=== PATIENT | male | born 1975 | race Caucasian/White ===

== ENCOUNTER 2022-06-06 21:12 | Emergency (ER) | payer BC, OTHER ==
[~2022-06-06] VITALS: Ht 175 cm; Wt 114.0 kg
[2022-06-06 21:26] VITALS: BP 148/107
--- NOTE | 2022-06-06 21:26 | ED Lower Extremity ---
General Stated Complaint: RIGHT LEG INJURY History of Present Illness Date Seen by Provider: Jun 06, 2022 Time Seen by Provider: 21:24 Initial Comments 46 yr M is here with c/o right knee pain after he rolled his opposite foot and his right knee was bent back all the way causing intensifying of pain which worsened. Pt has been having right knee pain for over a month after twisting his leg, and today it was exacerbated with the injury.Pt denies having an actual fall or blunt trauma to the knee. Pt took ibuprofen for the pain. Allergies and Home Medications Allergies Coded Allergies: No Known Drug Allergies (Unverified , 06/06/22) Patient Home Medication List Home Medication List Reviewed: Yes Review of Systems Constitutional: no symptoms reported EENTM: no symptoms reported Respiratory: no symptoms reported Cardiovascular: no symptoms reported Gastrointestinal: no symptoms reported Genitourinary: no symptoms reported Musculoskeletal: joint pain, joint swelling Skin: no symptoms reported Psychiatric/Neurological: No Symptoms Reported Physical Exam Vital Signs Vital Signs - First Documented 06/06/22 21:26 Temp 36.7 Pulse 76 Resp 16 B/P (MAP) 148/107 (121) Pulse Ox 97 O2 Delivery Room Air Capillary Refill : Height, Weight, BMI Height: '" Weight: lbs. oz. kg; BMI Method: General Appearance: WD/WN, no apparent distress HEENT: PERRL/EOMI Back: no vertebral tenderness Hips: right hip non-tender, right hip normal inspection, right hip normal range of motion, right hip no evidence of injury Legs: right leg non-tender, right leg normal inspection, right leg normal range of motion, right leg no evidence of injury Knees: right knee non-tender (Nontender To palpation), right knee normal range of motion, right knee swelling (Mild swelling to the knee, no crepitus, not warm to touch) Ankles: right ankle non-tender, right ankle normal inspection, right ankle normal range of motion, right ankle no evidence of injury Neurologic/Psychiatric: no motor/sensory deficits, alert, oriented x 3 Skin: normal color Progress/Results/Core Measures Results/Orders My Orders Orders - DASH PORRAS MD Knee 3 View Right (06/06/22 21:26) Tibia Fibula 2 View Right (06/06/22 21:30) Vital Signs/I&O 06/06/22 21:26 Temp 36.7 Pulse 76 Resp 16 B/P (MAP) 148/107 (121) Pulse Ox 97 O2 Delivery Room Air Progress Progress Note : Progress Note 1. RIGHT KNEE SPRAIN: - XR RIGHT KNEE/ TIB-FIB: no fractures. Small knee effusion - Advised ice application - Knee brace - Advised to elevate leg when sitting and not to stand for too long -Follow-up with Ortho in the next 7-10 days for MRI to rule out sprain -Advised ibuprofen or Tylenol as needed for pain -The patient was seen in the ED, and treated appropriately to presentation at a specific point in time. Patient is informed that there is a possibility that disease and illness can evolve and change in acuity rapidly or slowly after patient is discharged from the ER. Precautionary advice given to the patient for immediate return to ER if symptoms worsen or do not resolve, and to seek emergency care sooner rather than later. Pt also advised on the importance of PCP follow up and compliance with management and follow up plan with PCP and/or specialist, as this is part of the management plan. Pt verbally expressed understanding. Diagnostic Imaging Diagonstic Imaging: Xray Plain Films/CT/US/NM/MRI: leg, knee Comments [facility] [place], [place] NAME: SINA WEST MED REC#: [id number] PT STATUS: REG ER : 1975 PHYSICIAN: DASH PORRAS MD ADMIT DATE: 06/06/22/ER FS Signed Date of Exam:06/06/22 KNEE 3 VIEW RIGHT KNEE 3 VIEW RIGHT COMPARISON: None available. INDICATION: Right knee pain TECHNIQUE: Non-weight bearing AP, oblique, and lateral views of the right knee. FINDINGS: No fracture or traumatic malalignment. The joint spaces are well maintained. Small knee joint effusion. IMPRESSION: No acute fracture. Dictated by: Dictated on workstation # [id number] Dict: 06/06/222200 Trans: 06/06/222201 [facility] [id number] Interpreted by: MIAH BEVERLY MD Electronically signed by: MIAH BEVERLY MD 06/06/222201 [facility] [place], [place] NAME: SINA WEST MED REC#: [id number] PT STATUS: REG ER : 1975 PHYSICIAN: DASH PORRAS MD ADMIT DATE: 06/06/22/ER FS Signed Date of Exam:06/06/22 TIBIA FIBULA 2 VIEW RIGHT TIBIA FIBULA 2 VIEW RIGHT INDICATION: Right knee pain COMPARISON: Knee radiograph performed concurrently TECHNIQUE: 2 views of right tibia and fibula FINDINGS: Mild subcutaneous edema and swelling along the lateral aspect of the lower leg. No radiopaque foreign body or soft tissue gas. No fracture or erosions within the tibia or fibula. IMPRESSION: No osseous abnormality in the right lower leg. Dictated by: Dictated on workstation # [id number] Dict: 06/06/222201 Trans: 06/06/222202 [facility] [id number] Interpreted by: MIAH BEVERLY MD Electronically signed by: MIAH BEVERLY MD 06/06/222202 Departure Impression Primary Impression: Right knee sprain Qualified Codes: S83.91XA - Sprain of unspecified site of right knee, initial encounter Disposition: HOME, SELF-CARE Condition: Stable Departure-Patient Inst. Referrals: ALINE BUSTOS MD SELF,VICKIE ORNELAS (PCP/Family) Primary Care Physician Patient Instructions: Using Cold for Pain, Knee Sprain ED, Knee Sprain (DC) Add. Discharge Instructions: - Advised ice application - Knee brace - Advised to elevate leg when sitting and not to stand for too long -Follow-up with Ortho in the next 7-10 days for MRI to rule out sprain -Advised ibuprofen or Tylenol as needed for pain DASH PORRAS MD Jun 06, 2022 21:26
--- NOTE | 2022-06-06 22:03 | Diagnostic Imaging Report ---
KNEE 3 VIEW RIGHT COMPARISON: None available. INDICATION: Right knee pain TECHNIQUE: Non-weight bearing AP, oblique, and lateral views of the right knee. FINDINGS: No fracture or traumatic malalignment. The joint spaces are well maintained. Small knee joint effusion. IMPRESSION: No acute fracture. Dictated by: Dictated on workstation # [id number]
--- NOTE | 2022-06-06 22:04 | Diagnostic Imaging Report ---
TIBIA FIBULA 2 VIEW RIGHT INDICATION: Right knee pain COMPARISON: Knee radiograph performed concurrently TECHNIQUE: 2 views of right tibia and fibula FINDINGS: Mild subcutaneous edema and swelling along the lateral aspect of the lower leg. No radiopaque foreign body or soft tissue gas. No fracture or erosions within the tibia or fibula. IMPRESSION: No osseous abnormality in the right lower leg. Dictated by: Dictated on workstation # [id number]
== END 2022-06-06 22:25 | disposition home or self-care (01) ==
LOC: ER FS 21:17
DX: S83.91XA Sprain of unspecified site of right knee, initial encounter (principal); Z28.310 Unvaccinated for COVID-19; X50.1XXA Overexertion from prolonged static or awkward postures, initial encounter
CPT/HCPCS: 73562; 73590; 99283; L1830

== ENCOUNTER → 2022-07-01 | Outpatient (CLI) | payer BC | LOC: ORTHO 15:21 | PROVIDERS: ATTEND Orthopaedic Surgery | DX: S83.241A Other tear of medial meniscus, current injury, right knee, initial encounter (principal); X58.XXXA Exposure to other specified factors, initial encounter | CPT/HCPCS: 99203 ==

== ENCOUNTER → 2022-07-17 | Outpatient (CLI) | payer BC ==
--- NOTE | 2022-07-17 15:36 | Diagnostic Imaging Report ---
PROCEDURE: MRI right joint lower extremity without contrast. TECHNIQUE: Multiplanar, multisequence non contrast-enhanced MRI of the right lower extremity was accomplished. INDICATION: Right knee pain, medial meniscus tear. COMPARISON: Radiographs from 06/06/2022. FINDINGS: No acute fracture is seen in the right knee. Alignment appears normal. There is a large right knee joint effusion. The articular cartilage in the patellofemoral compartment demonstrates no full-thickness defects. The cartilage in the medial compartment demonstrates marked thinning with full-thickness cartilage loss at the weightbearing aspect. The lateral compartment cartilage appears intact. There is a radial tear through the posterior horn of the medial meniscus near the root with additional horizontal tearing of the posterior horn extending into the body. There is a fragment flipped inferiorly into the meniscotibial recess. The lateral meniscus appears intact. The anterior and posterior cruciate ligaments are intact. The medial collateral ligament has mild adjacent edema due to the underlying meniscal pathology but no tear is seen. The lateral collateral ligamentous complex is intact. The extensor mechanism is intact. The medial and lateral retinacula appear intact. IMPRESSION: 1. Tearing of the medial meniscus. 2. Marked cartilage loss in the medial right knee. 3. Large right knee joint effusion. Dictated by: Dictated on workstation # [id number]
== END ==
LOC: RAD 13:35
PROVIDERS: ATTEND Orthopaedic Surgery
DX: S83.241A Other tear of medial meniscus, current injury, right knee, initial encounter (principal); X58.XXXA Exposure to other specified factors, initial encounter
CPT/HCPCS: 73721

== ENCOUNTER → 2022-07-31 | Outpatient (CLI) | payer BC | LOC: ORTHO 13:20 | PROVIDERS: ATTEND Orthopaedic Surgery | DX: S83.241D Other tear of medial meniscus, current injury, right knee, subsequent encounter (principal); X58.XXXD Exposure to other specified factors, subsequent encounter | CPT/HCPCS: 99213 ==

== ENCOUNTER 2022-08-08 05:31 | Outpatient (CLI) | payer BC ==
[~2022-08-08] VITALS: Ht 175.3 cm; Wt 112.9 kg
[2022-08-13] MEDS ORDERED: AMLO-251 PO (11:01)
[2022-08-13] MEDS ORDERED: ASPI-999 PO (11:01)
[2022-08-13] MEDS ORDERED: IBUP-1773 PO (11:01)
[2022-08-13] MEDS ORDERED: LISI1TAB48 PO (11:01)
== END 2022-08-13 11:21 | disposition home or self-care (01) ==
LOC: PREOP 05:31
PROVIDERS: ATTEND Orthopaedic Surgery
DX: Z01.818 Encounter for other preprocedural examination (principal)

== ENCOUNTER 2022-08-15 06:35 | Day surgery (SDC) | payer BC ==
[~2022-08-15] VITALS: Ht 175.3 cm; Wt 112.9 kg
[2022-08-15] VITALS (10 sets, daily range): BP systolic 117–140; BP diastolic 74–98
[~2022-08-15 06:35] MED LIST: AMLO-251 PO; ASPI-999 PO; IBUP-1773 PO; LISI1TAB48 PO
[2022-08-15] MEDS ORDERED: ceFAZolin INJECTION 2,000 MG in NS (IVPB) 50 ML IV ONE (06:45)
[2022-08-15] MEDS ORDERED: BUP/EPI 0.25% 1:200,000 (MARCAINE) 30 ML VIAL ONE (07:11)
[2022-08-15] MEDS: LACTATED RINGERS 1,000 ML IV PRN ×2 (07:14→08:12)
[2022-08-15] MEDS ORDERED: proPOfol 200 MG/20 ML (DIPRIVAN) VIAL IV ONE ×2 (07:37→08:05)
[2022-08-15] MEDS ORDERED: LIDOCAINE PF 2% 5 ML (XYLOCAINE) VIAL ONE (07:37)
[2022-08-15] MEDS ORDERED: ONDANSETRON 4 MG/2 ML (SDV) Z0FRAN ONE (07:37)
[2022-08-15] MEDS ORDERED: fentaNYL INJ 100 MCG/2 ML AMP ONE (07:38)
[2022-08-15] MEDS ORDERED: MIDAZOLAM 2 MG/2 ML (VERSED) VIAL ONE (07:38)
--- NOTE | 2022-08-15 07:43 | Progress Note-Pre Operative ---
Pre-Operative Progress Note Date of Available H&P: July 31, 2022 Date H&P Reviewed: Aug 15, 2022 Time H&P Reviewed: 07:35 History & Physical: H&P Reviewed, Patient Examed, No changes noted Pre-Operative Diagnosis: Right Knee Medial Meniscus Tear KOSTAS BUSTOS MD Aug 15, 2022 07:43
[2022-08-15] MEDS ORDERED: BUP/EPI 0.25% 1:200,000 (MARCAINE) 30 ML VIAL INJ ONE (08:10)
--- NOTE | 2022-08-15 08:33 | Operative Report - Ortho ---
Operative Report Surgeon (s)/Rotary Pump Operator (s) Surgeon KOSTAS BUSTOS MD Rotary Pump Operator n/a Pre-Operative Diagnosis Right Knee Medial Meniscus Tear Post-Operative Diagnosis same Operative Report Date of Procedure: Aug 15, 2022 Name of Procedure Performed: Right Knee Arthroscopy with Partial Medial Meniscectomy Description & Findings After obtaining informed consent and marking the patient in the preoperative holding area, the patient was administered IV antibiotics and taken to the operating room. General anesthesia was induced. The left lower extremity was placed in the well leg weber and the right leg was placed in the arthroscopic weber. Surgical timeout was taken. The right lower extremity was prepped and draped in the usual sterile fashion. An anterolateral portal was established and a diagnostic knee arthroscopy was performed with the following findings: the patellofemoral portion of the joint demonstrated grade I change with focal grade II change, the patella tracked well through the trochlear groove, the gutters had multiple cartilaginous loose bodies, there was a medial meniscus tear of the posterior horn, grade II change with focal grade III change on the femoral condyle in the area of the meniscal tear in the medial compartment, ACL was intact, lateral compartment with intact meniscus and articular cartilage. An anteromedial portal was established. Probe was inserted and the meniscal tear was explored. Shaver was inserted and the meniscal tear was debrided to a stable border. Shaver was then used to debride articular cartilage flaps near the focal change on the medial femoral condyle. Probe was reinserted and confirmed that the meniscectomy was stable and the articular cartilage in the debrided area was also stable. The shaver was then taken into the suprapatellar pouch and the cartilaginous loose bodies in the gutters were removed. Instruments were withdrawn. Wounds were closed with 3-0 nylon and dressed with xeroform, 4x4s, ABD, cast padding, and JEANINE wrap. Patient tolerated the procedure well and was stable to the recovery room. Anesthesia Type General Estimated Blood Loss minimal Specimen(s) collected/removed None KOSTAS BUSTOS MD Aug 15, 2022 08:33
[2022-08-15] MEDS ORDERED: OXC5T PO (08:35)
[2022-08-15] MEDS ORDERED: SEVOFLURANE (ULTANE) 15 ML INHAL SOLN ONE (08:44)
[2022-08-15] MEDS ORDERED: HYDROmorphone 2 MG/ML VIAL (DILAUDID) IV ONE (08:45)
[2022-08-15] MEDS ORDERED: ONDANSETRON 4 MG/2 ML (SDV) Z0FRAN IVP PRN (08:45)
[2022-08-15] MEDS ORDERED: morphine INJ 10 MG/ML 1ML (SYR OR VIAL) IVP ONE (08:45)
--- NOTE | 2022-08-15 09:43 | Anesthesia-General Post-Op ---
General Patient Condition Mental Status/LOC: Same as Preop Cardiovascular: Satisfactory Nausea/Vomiting: Absent Respiratory: Satisfactory Pain: Controlled Complications: Absent Post Op Complications Complications None Follow Up Care/Instructions Patient Instructions None needed. Anesthesia/Patient Condition Patient Condition Patient is doing well, C/O mild knee pain which is to be expected, stable vital signs, no apparent adverse anesthesia problems. No complications reported per nursing. KODAK GUTIERREZ DO Aug 15, 2022 09:43
== END 2022-08-15 10:50 | disposition home or self-care (01) ==
LOC: SDC 06:35
PROVIDERS: ATTEND Orthopaedic Surgery
DX: S83.241A Other tear of medial meniscus, current injury, right knee, initial encounter (principal); G47.33 Obstructive sleep apnea (adult) (pediatric); J45.909 Unspecified asthma, uncomplicated; Z79.899 Other long term (current) drug therapy; X58.XXXA Exposure to other specified factors, initial encounter
CPT/HCPCS: 87081

== ENCOUNTER → 2022-08-28 | Outpatient (CLI) | payer BC ==
[~2022-08-28] MED LIST changes: +OXC5T PO
== END ==
LOC: ORTHO 11:19
PROVIDERS: ATTEND Orthopaedic Surgery
DX: Z47.89 Encounter for other orthopedic aftercare (principal)